=== PATIENT | female | born 1935 ===

== ENCOUNTER 2017-02-09 18:45 | Observation (INO) | payer MEDICARE, MEDICAID ==
--- NOTE | 2017-02-09 20:06 | ED PDOC ---
HPI: Altered Mental Status Time Seen by Provider: 02/09/17 19:04 Chief Complaint (Nursing): Altered Mental Status History Per: EMS, Family Onset/Duration Of Symptoms: Mins Onset Of Symptoms: <3 Hours Current Symptoms Are (Timing): Better Usual Baseline: Alert Oriented Use Of Anticoag/Antiplatlets: No Pain Scale Rating Of: 0 Additional History Per: Family Additional Complaint(s): Toshia Ledbetter is an 81 yo F with PMH DM2, ESRD on HD, and dementia, who was brought to the emergency department today, 02/09/17 due to altered mental status during hemodialysis. As per EMS, pt had about 20 minutes left in HD, when she started staring off into space and then became responsive only to painful stimuli; vitals remained stable. At arrival to the ED, pt was responsive to verbal stimuli and was more alert and oriented, and was able to verbalize her name and recognize family members. No focal neural decifits were noted- pt had equal executive chef bilaterally, equal smile, no gaze paresis, was able to move all extremities. Family denies history of stroke. History was obtained via pt's daughter and grand-daughter, who stated that this is pt's baseline mental status. Stated that 10 days ago they were told by HD center that she started to stare into space but they were able to bring her back to baseline without calling 911. Also stared that that one year ago she had an episode of respiratory arrest during HD, which led her to be on a ventilator for several days (less than one week), after which she recovered and has been getting HD without any events until 10 days ago. PMD: Jessica Shen PMH: DM2, ESRD, dementia Past Surg hx: appendectomy, bilateral cataract surg Fam hx: unknown Social hx: lives at home with family, unable to walk unassisted Allergies: NKDA Rx meds (as per list from HD center): Catria XT (Diltiazem) 240mg once daily, Dozepezil 10mg once daily, Isosorbide 60mg once daily, Lorazepam 0.5 mg once daily, Ropimirole 0.5 mg once daily 3hrs before bedtime ROS: denies headache, dizziness, chest pain, shortness of breath, chest pain, abdominal pain/discomfort. Pt seen/discussed with Dr. Chung Past Medical History Vital Signs: Last Vital Signs Temp 97.6 F 02/09/17 19:47 Pulse 82 02/09/17 19:47 Resp 18 02/09/17 19:47 BP 149/76 02/09/17 19:47 Pulse Ox 99 02/09/17 19:47 - Medical History PMH: Dementia, Diabetes, End Stage Renal Disease - Surgical History Surgical History: Appendectomy Other surgeries: bilateral cataract surgery - Family History Family History: States: Unknown Family Hx - Living Arrangements Living Arrangements: With Family - Home Medications Home Medications: Ambulatory Orders Medication Instructions Recorded Diltiazem HCl [Cartia Xt] 240 mg PO DAILY 02/09/17 Donepezil [Aricept] 10 mg PO DAILY 02/09/17 Isosorbide Mononitrate [Imdur] 60 mg PO DAILY 02/09/17 LORazepam [Ativan] 0.5 mg PO BID 02/09/17 Ropinirole HCl [Requip] 0.5 mg PO HS 02/09/17 - Allergies Allergies/Adverse Reactions: Allergies Allergy/AdvReac Type Severity Reaction Status Date / Time No Known Allergies Allergy Verified 02/09/17 18:49 Review of Systems ROS Statement: Except As Marked, All Systems Reviewed And Found Negative Neurological: Positive for: Altered Mental Status Physical Exam - Reviewed Vital Signs Reviewed: Yes - Physical Exam Appears: Positive for: No Acute Distress Head Exam: Positive for: ATRAUMATIC, NORMAL INSPECTION Skin: Positive for: Normal Color, Warm, Dry Eye Exam: Positive for: EOMI Neck: Positive for: Supple Cardiovascular/Chest: Positive for: Chest Non Tender, Other (permacath). Negative for: Murmur Respiratory: Positive for: Normal Breath Sounds. Negative for: Respiratory Distress Gastrointestinal/Abdominal: Positive for: Normal Exam, Bowel Sounds, Soft Extremity: Negative for: Calf Tenderness Neurologic/Psych: Positive for: Alert, tactical air defense controller II-XII (grossly intact), Other ( baseline according to family ) - Laboratory Results Result Diagrams: 02/09/17 20:00 02/09/17 20:00 - ECG ECG Rhythm: Positive for: Atrial Fibrillation (rate controlled) O2 Sat by Pulse Oximetry: 99 - Progress ED Course And Treament: Fingerstick 172 EKG- interpreted by Dr. Chung- rate controlled A-fib CMP elevated BUN/Cr 36/4.3 (ESRD) CBC Hgb 11.6, WBC 10.9, Troponin neg x1 Lactate 0.7 CT head no acute pathology seen as per report CXR no acute pathology (interpreted with Dr. Chung) 23:00 Pt comfortable, family at bedside Disposition - Clinical Impression Clinical Impression: Near syncope - Patient ED Disposition Is Patient to be Admitted: Yes Discussed With : Stu Chávez Comment: Hospitalist service - Disposition Disposition Time: 11:00 Condition: FAIR - Pt Status Changed To: Hospital Disposition Of: Inpatient - Admit Certification Admit to Inpatient:: After my assessment, the patient will require hospitalization for at least two midnights. This is because of the severity of symptoms shown, intensity of services needed, and/or the medical risk in this patient being treated as an outpatient.
[2017-02-09 20:22] LABS: BASO # 0.1 K/uL (0.0-0.2); BASO % 1.3 % (0.0-2.0); EOS # 0.1 K/uL (0.0-0.7); EOS % 1.1 % (0.0-4.0); LYMPH # 1.2 K/uL (1.0-4.3); LYMPH % 11.2 % (20.0-40.0); MEAN CELL VOLUME 81.6 fl (81.0-99.0); MEAN CORPUSCULAR HEMOGLOBIN 26.3 pg (27.0-31.0); MEAN CORPUSCULAR HGB CONC 32.3 g/dL (33.0-37.0); MEAN PLATELET VOLUME 6.4 fl (7.2-11.7); MONO # 0.7 K/uL (0.0-0.8); MONO % 6.2 % (0.0-10.0); NEUT # 8.8 K/uL (1.8-7.0); NEUT % 80.2 % (50.0-75.0); NRBC % 0.1 % (0.0-0.0); RED CELL DISTRIBUTION WIDTH 16.4 % (11.5-14.5); WHITE BLOOD COUNT 10.9 K/uL (4.8-10.8)
[2017-02-09 20:28] LABS: PARTIAL THROMBOPLASTIN TIME 31.8 Seconds (25.6-37.1)
[2017-02-09 20:33] LABS: ALB/GLOB RATIO 1.2 (1.0-2.1); BILIRUBIN,TOTAL 0.4 mg/dl (0.2-1.3); CALCIUM 9.3 mg/dL (8.4-10.2); POTASSIUM 3.8 MMOL/L (3.6-5.0)
[2017-02-09 20:43] LABS: TROPONIN I 0.019 ng/mL (0.00-0.120)
[2017-02-09 20:59] LABS: RBC URINE 2 /hpf (0-3); URINE BILIRUBIN NEGATIVE (NEGATIVE); URINE BLOOD NEGATIVE (NEGATIVE); URINE COLOR YELLOW (YELLOW); URINE GLUCOSE (UA) >=500 mg/dL (Normal); URINE KETONE TRACE mg/dL (NEGATIVE); URINE LEUKOCYTE ESTERASE NEG Leu/uL (Negative); URINE PROTEIN >=500 mg/dL (NEGATIVE); URINE UROBILINOGEN 0.2-1.0 mg/dL (0.2-1.0); WBC URINE 1 /hpf (0-5)
--- NOTE | 2017-02-09 21:53 | CT ---
EXAM: CT Head Without Intravenous Contrast CLINICAL HISTORY: 81 years old, female; Signs and symptoms; Other: Unresponsive while getting hemodialysis tx; Patient HX: Dm dementia a-fib ckd hd; Additional info: AMS TECHNIQUE: Axial computed tomography images of the head/brain without intravenous contrast. All CT scans at this facility use one or more dose reduction techniques, viz.: automated exposure control; ma/kV adjustment per patient size (including targeted exams where dose is matched to indication; i.e. head); or iterative reconstruction technique. Coronal and sagittal reformatted images were created and reviewed. COMPARISON: No relevant prior studies available. FINDINGS: Limitations: Motion artifact - mild. Brain: [id number] atrophy. No definite intracranial hemorrhage. No mass. Multiple scattered foci of decreased attenuation within periventricular/subcortical white matter. Probable chronic lacunar infarcts within basal ganglia. No definite edema. Ventricles: No hydrocephalus. Bones/joints: No acute fracture. Subluxation of RIGHT temporomandibular joint. Soft tissues: Unremarkable. Vasculature: Atherosclerotic disease of intracranial arteries. Sinuses: Few maxillary retention cysts. Mastoid air cells: No mastoid effusion. Orbits: Unremarkable as visualized. IMPRESSION: 1. Nonspecific white matter changes. Acute infarction may be CT occult within first 24 hours. If a focal deficit persists, consider followup CT or MRI for further evaluation. 2. Incidental/non-acute findings are described above.
--- NOTE | 2017-02-09 22:45 | CP.PCM.HP ---
History of Present Illness - History of Present Illness History of Present Illness: CC: AMS/near syncope (Mostly obtained from staff and chart as patient cannot provide) HPI: This is an 81 y/o female with MHx significant for ESRD on HD, DM2, HTN, A fib, and dementia. She was brought by EMS to the ER today after she had ?LOC or AMS at her HD session. Per EMS, toward the end of her session, she began to stare off into space and became responsive only to pain. Her vitals were stable the entire time. Upon arrival to ED, patient was alert and oriented, and responsive to some questions though confused. She was not noted to have any focal neuro deficits. Apparently about 10 days ago at HD she had a similar episode the family was told. The patient provides no information at this time. PMD: Huber URBINA: cannot perform as patient has dementia and does not provide reliable answers MHx: DM2, ESRD, HTN, A fib, dementia SHx: Appx, cataracts b/l, RIJ dialysis line Allergies: NKDA Medications: Per med rec Family Hx: Cannot obtain Social Hx: Lives with family, no tobacco, no EtOH Surrogate: Son, listed in chart Present on Admission - Present on Admission Any Indicators Present on Admission: No Past Patient History - Infectious Disease Hx of Infectious Diseases: None - Past Social History Smoking Status: Never Smoked - CARDIAC Hx Atrial Fibrillation: Yes - NEUROLOGICAL Hx Dementia: Yes - RENAL Hx Dialysis: Yes Type of Dialysis Access: Catheter right chest Date of Last Dialysis Treatment: 02/09/17 - ENDOCRINE/METABOLIC Hx Diabetes Mellitus Type 2: Yes - PSYCHIATRIC Hx Substance Use: No - SURGICAL HISTORY Hx Appendectomy: Yes - ANESTHESIA Hx Anesthesia: Yes Meds Allergies/Adverse Reactions: Allergies Allergy/AdvReac Type Severity Reaction Status Date / Time No Known Allergies Allergy Verified 02/09/17 18:49 Physical Exam - Constitutional Appears: No Acute Distress, Confused - Head Exam Head Exam: ATRAUMATIC, NORMOCEPHALIC - Eye Exam Eye Exam: EOMI, PERRL - ENT Exam ENT Exam: Mucous Membranes Moist - Neck Exam Neck exam: Positive for: Full Rom - Respiratory Exam Respiratory Exam: Clear to Auscultation Bilateral, NORMAL BREATHING PATTERN - Cardiovascular Exam Cardiovascular Exam: Irregular Rhythm, +S1, +S2 - GI/Abdominal Exam GI & Abdominal Exam: Normal Bowel Sounds, Soft - Extremities Exam Extremities exam: Positive for: pedal edema - Neurological Exam Neurological exam: Alert, CN II-XII Intact Additional comments: awake, alert, but not oriented; spontaneously moving all extremeties - Skin Skin Exam: Dry, Warm Results - Vital Signs Recent Vital Signs: Last Vital Signs Temp 97.8 F 02/09/17 21:44 Pulse 82 02/09/17 21:44 Resp 16 02/09/17 21:44 BP 158/79 H 02/09/17 21:44 Pulse Ox 97 02/09/17 21:44 - Labs Result Diagrams: 02/09/17 20:00 02/09/17 20:00 Labs: Laboratory Results - last 24 hr 02/09/17 02/09/17 02/09/17 20:00 20:00 20:00 WBC 10.9 H RBC 4.42 Hgb 11.6 L Hct 36.0 MCV 81.6 MCH 26.3 L MCHC 32.3 L RDW 16.4 H Plt Count 233 MPV 6.4 L Neut % (Auto) 80.2 H Lymph % (Auto) 11.2 L [place] % (Auto) 6.2 Eos % (Auto) 1.1 Baso % (Auto) 1.3 Neut # 8.8 H Lymph # 1.2 [place] # 0.7 Eos # 0.1 Baso # 0.1 PT INR APTT Sodium 138 Potassium 3.8 Chloride 97 L Carbon Dioxide 26 Anion Gap 19 BUN 36 H Creatinine 4.3 H Est GFR ( Amer) 12 Est GFR (Non-Af Amer) 10 Random Glucose 195 H Lactic Acid 0.7 Calcium 9.3 Total Bilirubin 0.4 AST 40 H ALT 29 Alkaline Phosphatase 115 Troponin I 0.0190 Total Protein 8.0 Albumin 4.4 Globulin 3.6 Albumin/Globulin Ratio 1.2 Urine Color Urine Clarity Urine pH Ur Specific [place] Urine Protein Urine Glucose (UA) Urine Ketones Urine Blood Urine Nitrate Urine Bilirubin Urine Urobilinogen Ur Leukocyte Esterase Urine RBC (Auto) Urine Microscopic WBC Ur Squamous Epith Cells Hyaline Casts 02/09/17 02/09/17 20:00 20:30 WBC RBC Hgb Hct MCV MCH MCHC RDW Plt Count MPV Neut % (Auto) Lymph % (Auto) [place] % (Auto) Eos % (Auto) Baso % (Auto) Neut # Lymph # [place] # Eos # Baso # PT 11.9 INR 1.1 APTT 31.8 Sodium Potassium Chloride Carbon Dioxide Anion Gap BUN Creatinine Est GFR ( Amer) Est GFR (Non-Af Amer) Random Glucose Lactic Acid Calcium Total Bilirubin AST ALT Alkaline Phosphatase Troponin I Total Protein Albumin Globulin Albumin/Globulin Ratio Urine Color Yellow Urine Clarity Clear Urine pH 8.0 Ur Specific [place] 1.013 Urine Protein >=500 Urine Glucose (UA) >=500 Urine Ketones Trace Urine Blood Negative Urine Nitrate Negative Urine Bilirubin Negative Urine Urobilinogen 0.2-1.0 Ur Leukocyte Esterase Neg Urine RBC (Auto) 2 Urine Microscopic WBC 1 Ur Squamous Epith Cells < 1 Hyaline Casts 3-5 H - EKG Data EKG Interpreted by: Myself Rate: Normal - EKG Data EKG comments: A fib, R axis deviation, intraventricular conduction delay Assessment & Plan (1) Near syncope Assessment and Plan: 81 y/o female with multiple chronic conditions brought in from HD after AMS/ near syncope; no stable, no focal deficits. 1) AMS/Syncope -Will check serial troponins -Consider Echo, carotid dopplers if further symptoms appear indicative of possible TIAs -Consider neuro consult/seizure workup if further symptoms -Will monitor on tele overnight 2) ESRD on HD -Renal diet -If patient admitted for several days, will need nephro consult for HD 3) HTN -- continue home medications 4) A fib -- stable, continue diltiazem 5) DM2 -qid ACHS accuchecks -SSI for now -Controlled carb diet 6) DVT PPx -- SQ heparin Status: Acute (2) ESRD (end stage renal disease) on dialysis Status: Acute (3) DM2 (diabetes mellitus, type 2) Status: Acute (4) A-fib Status: Acute (5) HTN (hypertension) Status: Acute (6) DVT prophylaxis Status: Acute
[2017-02-09 23:13] VITALS: RESP 18
--- NOTE | 2017-02-10 07:05 | RAD ---
HISTORY: admit COMPARISON: No prior. FINDINGS: LUNGS: Mild bilateral interstitial changes. PLEURA: No significant pleural effusion identified, no pneumothorax apparent. CARDIOVASCULAR: Cardiomegaly. Atherosclerotic aorta. OSSEOUS STRUCTURES: No significant abnormalities. VISUALIZED UPPER ABDOMEN: Normal. OTHER FINDINGS: Right double-lumen all CVP catheter in place. IMPRESSION: Bilateral interstitial changes.
[2017-02-10] MEDS: Insulin Lispro (humaLOG) 100 Units/ml Inj SC SCH ×2 (07:30→13:39)
[2017-02-10 08:06] LABS: HEMATOCRIT 34.3 % (34.0-47.0); MEAN CELL VOLUME 81.5 fl (81.0-99.0); MEAN CORPUSCULAR HEMOGLOBIN 26.3 pg (27.0-31.0); MEAN CORPUSCULAR HGB CONC 32.3 g/dL (33.0-37.0); RED CELL DISTRIBUTION WIDTH 16.4 % (11.5-14.5); WHITE BLOOD COUNT 8.8 K/uL (4.8-10.8)
[2017-02-10 08:21] LABS: POTASSIUM 4.7 MMOL/L (3.6-5.0)
[2017-02-10] MEDS ORDERED: diltiaZEM 240 mg/24 Hours CD Cap PO SCH (09:00)
--- NOTE | 2017-02-10 11:47 | CP.PCM.DIS ---
Provider - Provider Date of Admission: 02/09/17 22:06 Attending physician: Stu Chávez MD Primary care physician: Diamond TBD Consults: none Time Spent in preparation of Discharge (in minutes): 15 Hospital Course - Lab Results Lab Results: Most Recent Lab Values WBC 8.8 K/uL (4.8-10.8) 02/10/17 06:30 RBC 4.21 Mil/uL (3.80-5.20) 02/10/17 06:30 Hgb 11.1 g/dL (12.0-16.0) L 02/10/17 06:30 Hct 34.3 % (34.0-47.0) 02/10/17 06:30 MCV 81.5 fl (81.0-99.0) 02/10/17 06:30 MCH 26.3 pg (27.0-31.0) L 02/10/17 06:30 MCHC 32.3 g/dL (33.0-37.0) L 02/10/17 06:30 RDW 16.4 % (11.5-14.5) H 02/10/17 06:30 Plt Count 238 K/uL (130-400) 02/10/17 06:30 MPV 6.4 fl (7.2-11.7) L 02/09/17 20:00 Neut % (Auto) 80.2 % (50.0-75.0) H 02/09/17 20:00 Lymph % (Auto) 11.2 % (20.0-40.0) L 02/09/17 20:00 [place] % (Auto) 6.2 % (0.0-10.0) 02/09/17 20:00 Eos % (Auto) 1.1 % (0.0-4.0) 02/09/17 20:00 Baso % (Auto) 1.3 % (0.0-2.0) 02/09/17 20:00 Neut # 8.8 K/uL (1.8-7.0) H 02/09/17 20:00 Lymph # 1.2 K/uL (1.0-4.3) 02/09/17 20:00 [place] # 0.7 K/uL (0.0-0.8) 02/09/17 20:00 Eos # 0.1 K/uL (0.0-0.7) 02/09/17 20:00 Baso # 0.1 K/uL (0.0-0.2) 02/09/17 20:00 PT 11.9 Seconds (9.8-13.1) 02/09/17 20:00 INR 1.1 (0.9-1.2) 02/09/17 20:00 APTT 31.8 Seconds (25.6-37.1) 02/09/17 20:00 Sodium 140 mmol/l (132-148) 02/10/17 06:30 Potassium 4.7 MMOL/L (3.6-5.0) 02/10/17 06:30 Chloride 98 mmol/L (98-107) 02/10/17 06:30 Carbon Dioxide 28 mmol/L (22-30) 02/10/17 06:30 Anion Gap 19 (10-20) 02/10/17 06:30 BUN 48 mg/dl (7-17) H 02/10/17 06:30 Creatinine 5.6 mg/dl (0.7-1.2) H 02/10/17 06:30 Est GFR ( Amer) 9 02/10/17 06:30 Est GFR (Non-Af Amer) 7 02/10/17 06:30 POC Glucose (mg/dL) 187 mg/dL (65-110) H 02/10/17 10:39 Random Glucose 111 mg/dL (65-105) H 02/10/17 06:30 Lactic Acid 0.7 MMOL/L (0.7-2.1) 02/09/17 20:00 Calcium 9.0 mg/dL (8.4-10.2) 02/10/17 06:30 Total Bilirubin 0.4 mg/dl (0.2-1.3) 02/09/17 20:00 AST 40 U/L (14-36) H 02/09/17 20:00 ALT 29 U/L (9-52) 02/09/17 20:00 Alkaline Phosphatase 115 U/L (38-126) 02/09/17 20:00 Troponin I 0.0240 ng/mL (0.00-0.120) 02/10/17 06:30 Total Protein 8.0 G/DL (6.3-8.2) 02/09/17 20:00 Albumin 4.4 g/dL (3.5-5.0) 02/09/17 20: Globulin 3.6 gm/dL (2.2-3.9) 02/09/17 20:00 Albumin/Globulin Ratio 1.2 (1.0-2.1) 02/09/17 20:00 Urine Color Yellow (YELLOW) 02/09/17 20:30 Urine Clarity Clear (Clear) 02/09/17 20: Urine pH 8.0 (5.0-8.0) 02/09/17 20:30 Ur Specific [place] 1.013 (1.003-1.030) 02/09/17: Urine Protein >=500 mg/dL (NEGATIVE) 02/09/17: Urine Glucose (UA) >=500 mg/dL (Normal) 02/09/17 20: Urine Ketones Trace mg/dL (NEGATIVE) 02/09/17 20:30 Urine Blood Negative (NEGATIVE) 02/09/17:30 Urine Nitrate Negative (NEGATIVE) 02/09/17 20:30 Urine Bilirubin Negative (NEGATIVE) 02/09/17 20:30 Urine Urobilinogen 0.2-1.0 mg/dL (0.2-1.0) 02/09/17 20:30 Ur Leukocyte Esterase Neg [place]/uL (Negative) 02/09/17 20:30 Urine RBC (Auto) 2 /hpf (0-3) 02/09/17 20:30 Urine Microscopic WBC 1 /hpf (0-5) 02/09/17 20:30 Ur Squamous Epith Cells < 1 /hpf (0-5) 02/09/17 20:30 Hyaline Casts 3-5 /hpf (0-2) H 02/09/17 20:30 - Hospital Course Hospital Course: 81 y/o female with PMHx significant for ESRD on HD, DM2, HTN, A fib, and dementia was brought by EMS to the ER today after she had am episode of changed mental status during HD. Per EMS, toward the end of her session, she began to stare off into space and became responsive only to pain. Her vitals were stable the entire time. Upon arrival to ED, patient was alert and oriented , and responsive to some questions though confused. She was not noted to have any focal neuro deficits. Apparently about 10 days ago at HD she had a similar episode the family was told. Ct head showed no acute pathology,EKG showed afib rate controlled with no St-T wave changes, Trop x 2 were negative.patient was placed under observation in telemetry. She had episodes of bradycardia during sleep as low as 45 but the rest of her vitals remained stable.As per daughter patient is her own self, at her baseline with dementia but no neuro deficits As per daughter she has noticed that her HD cycles has prolonged recently from 3 hours session to 3 hour 40 minute session and that the mother gets very tired and sleepy with the long sessions. She believes that amount of fluid removed is more than her mother can tolerate and she would like to discuss it with her mother's nephrology. At present patient is hemodynamically stable, afebrile, back to her baseline with no neurodeficits She is not on any anticoagulation for her Afib most likely because of her dementia and fall risk.She can follow up with Her PMD as outpatient. 1. AMS-- suspected near syncopy back to her baseline EKG showed Afib rate controlled trop x [address] head showed no acute pathology no further work up necessary at this time Can be discharged to follow up with PMD daughter to discuss with bellmaker about duration of HD If staring episodes continue --neuro eval and EEG as outpatient recommended 2. ESRD on HD Renal diet continue HD as outpatient 3. HTN controlled continue home medications 4. A fib stable, continue diltiazem not on anticoagulation due to fall risk 5. DM2 SSI for now Controlled carb diet Discharge Exam - Head Exam Head Exam: ATRAUMATIC, NORMOCEPHALIC - Eye Exam Eye Exam: Normal appearance, PERRL Pupil Exam: NORMAL ACCOMODATION - ENT Exam ENT Exam: Mucous Membranes Moist, Normal Exam - Neck Exam Neck exam: Full Rom, Normal Inspection - Respiratory Exam Respiratory Exam: Clear to PA & Lateral, NORMAL BREATHING PATTERN. absent: Rales, Rhonchi, Wheezes, Respiratory Distress - Cardiovascular Exam Cardiovascular Exam: Irregular Rhythm, +S1, +S2. absent: JVD - GI/Abdominal Exam GI & Abdominal Exam: Normal Bowel Sounds, Soft. absent: Distended, Guarding, Rebound, Tenderness - Rectal Exam Rectal Exam: Deferred - Extremities Exam Extremities exam: normal capillary refill, normal inspection, pedal pulses present - Back Exam Back exam: NORMAL INSPECTION - Neurological Exam Neurological exam: Alert, CN II-XII Intact, Reflexes Normal Additional comments: pleasantly demented moves all 4 extremities no neuro deficits - Psychiatric Exam Psychiatric exam: Normal Affect Discharge Plan - Follow Up Plan Condition: STABLE Disposition: HOME/ ROUTINE Patient education suggested?: Yes Referrals: Alex Ngo MD [Family Provider] -
[2017-02-10 12:08] VITALS: BP 127/57; PULSE 92; TEMP 98.4; O2SAT 96
--- NOTE | 2017-02-10 14:15 | CARD ---
APPROVED REPORT EKG Measurement Heart [id number] <Conclusion> Atrial fibrillation Left axis deviation Incomplete right bundle branch block Voltage criteria for left ventricular hypertrophy Possible Lateral infarct, age undetermined Abnormal ECG
[2017-02-10] MEDS ORDERED: ROPINIROLE HCL 0.5 MG PO SCH (22:00)
== END 2017-02-10 14:37 | disposition home or self-care (01) ==
LOC: SUPCPDRO 18:45 → H.ER 18:45 → H.ERHOLD 22:06 → INTOOBSV 22:06 → H.TEL 23:26
PROVIDERS: ADMIT Internal Medicine; ATTEND Internal Medicine
DX: R41.82 Altered mental status, unspecified (principal); N18.6 End stage renal disease; I12.0 Hypertensive chronic kidney disease with stage 5 chronic kidney disease or end stage renal disease; F03.90 Unspecified dementia, unspecified severity, without behavioral disturbance, psychotic disturbance, mood disturbance, and anxiety; E11.22 Type 2 diabetes mellitus with diabetic chronic kidney disease; I48.91 Unspecified atrial fibrillation; Z99.2 Dependence on renal dialysis
CPT/HCPCS: 36415; 70450; 71010; 80048; 80053; 81003; 82948; 83605; 84484; 85025; 85027; 85610; 85730; 93005; 96372; 99285; G0378; J1644